=== PATIENT | female | born 1990 | race Caucasian/White ===

== ENCOUNTER → 2019-12-23 | Outpatient (CLI) | payer BC ==
[~2019-12-23] MED LIST: BIRTH CONTROL PO; MOTRIN 800800 MG/TAB PO; PRENATAL TABLET PO; UNISOM25 MG PO
== END ==
LOC: ZCOL.LAB
DX: Z20.828 Contact with and (suspected) exposure to other viral communicable diseases (principal)

== ENCOUNTER 2019-12-24 07:15 | Inpatient (IN) | payer BC ==
[~2019-12-24] VITALS: Ht 167.6 cm; Wt 70.0 kg
[2019-12-24] VITALS (31 sets, daily range): BP systolic 95–153; BP diastolic 55–87; PULSE 65–117; TEMP 97.4–98.5
[~2019-12-24 07:15] MED LIST changes: -MOTRIN 800800 MG/TAB PO; -PRENATAL TABLET PO; -UNISOM25 MG PO
--- NOTE | 2019-12-24 07:20 | NUR ---
Presents to labor and delivery for induction of labor. Assessment done, questions offered and answered. Patient states nervous. Visits with patient about feeling nervous.
[2019-12-24] MEDS ORDERED: PRENATAL TABLET PO (07:41)
[2019-12-24] MEDS ORDERED: UNISOM25 MG PO (07:42)
--- NOTE | 2019-12-24 08:15 | NUR ---
Iv start to left hand. Pitocin 2 dian units iv started as ordered and per policy.
--- NOTE | 2019-12-24 08:30 | NUR ---
3422 Dr. Riggs here. Visits with patient. Arom done, moderate amount of fluid noted. Pad changed.
--- NOTE | 2019-12-24 09:00 | NUR ---
Sits up for epidural. Visits with anesthesia. 0908 Space obtained by anesthesia Capri Mejia. 0909 Test dose given by anesthesia. Lies down after epidual.
[2019-12-24 09:37] LABS: BASO % 0.2 % (0.0-2.0); EOS # 0.1 (0.0-0.7); EOS % 0.6 % (0-4.0); GRAN % 58.6 % (42.2-75.2); HEMOGLOBIN 10.3 g/dl (12.5-16.0); LYMPH # 2.8 (1.2-3.4); LYMPH % 32.5 % (20.0-51.0); MEAN CELL VOLUME 88 fl (80.0-100.0); MEAN CORPUSCULAR HEMOGLOBIN 30 pg (27.0-31.0); MEAN CORPUSCULAR HGB CONC 34 g/dl (33.0-37.0); MONO # 0.6 (0.1-0.6); MONO % 7.5 % (1.7-9.3); PLATELET COUNT 231 K/mm3 (130-400); RED BLOOD COUNT 3.48 M/mm3 (4.10-5.30); REDCELL DISTRIBUTION WIDTH-CV 12.4 % (11.5-14.5)
--- NOTE | 2019-12-24 09:45 | NUR ---
States feeling more pain on right side. Anesthesia notified. See anesthesia notes please.
[2019-12-24 09:51] LABS: HEMATOCRIT 30.6 % (37.0-47.0)
--- NOTE | 2019-12-24 10:00 | NUR ---
Tylenol 1000 mg given as ordered for back pain.
--- NOTE | 2019-12-24 12:15 | NUR ---
1225 heart rate down in the nintys for twenty seconds and then back up to 130s Repositioned to left side.
--- NOTE | 2019-12-24 12:45 | NUR ---
[address] Riggs called and let know that patient complete. States to start pushing and let know when she needs to come to hospital.
--- NOTE | 2019-12-24 13:00 | NUR ---
1310 Pushes with contractions. heart tones down in the nintys. Dr. Riggs called to come to the hospital for heart tones being down in the nintys.1317 Dr. Riggs here. Preps for delivery. Pushes with contractions. 1327 Spontaneous delivery of baby boy by Dr. Riggs. 1329 Spontaneous delivery of placenta by Dr. Riggs. Pitocin infusing at 333ccs an hour.
--- NOTE | 2019-12-24 14:15 | NUR ---
Rests in bed, denies any pain or discomfort at this time.
--- NOTE | 2019-12-24 15:00 | NUR ---
Rests in bed, alert. Pumps with manual pump. Denies any needs at this time.
--- NOTE | 2019-12-24 15:30 | NUR ---
Rests in bed, alert. Eating meal. Denies any needs at this time.
--- NOTE | 2019-12-24 16:30 | NUR ---
Rests in bed, alert. Ambulates to the bathroom. States feeling nauseated. Wheel chair brought in by Sonia. To room 208 via wheel chair. Assisted to bed.
[2019-12-24] MEDS ORDERED: MOTRIN 800800 MG/TAB PO (18:58)
[2019-12-25 04:36] VITALS: BP 90/51; PULSE 66; TEMP 98.3
[2019-12-25 08:00] VITALS: BP 106/68; PULSE 80; TEMP 98
--- NOTE | 2019-12-25 08:00 | NUR ---
Rests in bed, alert. Assessment done. Request pain medication. 0815 Tylenol 650 mg given per request and as ordered.
--- NOTE | 2019-12-25 10:52 | NUR ---
Request pain medication. Ibuprofen 800 mg given per request and as ordered.
--- NOTE | 2019-12-25 12:00 | NUR ---
In nursery holding baby. Discharge instructions given by Naomy langford Verbalizes understanding.
== END 2019-12-25 12:45 | disposition home or self-care (01) | DRG 807 ==
LOC: LDR 07:15 → OB 16:29
PROVIDERS: ADMIT Obstetrics & Gynecology
PROC: 10E0XZZ Delivery of Products of Conception, External Approach (ICD-10-PCS; principal; 2019-12-24)
PROC: 0KQM0ZZ Repair Perineum Muscle, Open Approach (ICD-10-PCS; 2019-12-24)
PROC: 10907ZC Drainage of Amniotic Fluid, Therapeutic from Products of Conception, Via Natural or Artificial Opening (ICD-10-PCS; 2019-12-24)
DX: O99.02 Anemia complicating childbirth (principal); Z37.0 Single live birth; D64.9 Anemia, unspecified; O70.1 Second degree perineal laceration during delivery; Z3A.39 39 weeks gestation of pregnancy
CPT/HCPCS: J2405; J2590; J7120